=== PATIENT | female | born 1995 | race African-American/Black ===

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

== ENCOUNTER 2017-02-05 20:49 | Emergency (ER) | payer SELFPAY ==
[~2017-02-05] VITALS: Ht 154.9 cm; Wt 52.2 kg
[2017-02-05 21:26] LABS: BILIRUBIN,URINE SMALL (NEG); GLUCOSE,URINE NEGATIVE (NEG); NITRITE,URINE POSITIVE (NEG); PH,URINE 5.5; PROTEIN,URINE 100 mg/dL (NEG-TRACE); UROBILINOGEN,URINE 0.2 mg/dL (0.2 mg/dL)
[2017-02-05 21:44] LABS: BASO # 0.1 x10^3/uL (0.0-0.2); BASO % 1 % (0-3); EOS % 1 % (0-3); HEMATOCRIT 35.8 % (36.0-47.0); HEMOGLOBIN 11.6 g/dL (12.0-15.5); LYMPH # 1.1 x10^3/uL (1.0-4.8); LYMPH % 15 % (24-48); MEAN CORPUSCULAR HEMOGLOBIN 26 pg (25-35); MEAN CORPUSCULAR HGB CONC 33 g/dL (31-37); MEAN CORPUSCULAR VOLUME 81 fL (79-100); MONO % 7 % (0-9); NEUT % 77 % (31-73); PLATELET COUNT 255 x10^3/uL (140-400); RED BLOOD COUNT 4.44 x10^6/uL (3.50-5.40); RED CELL DISTRIBUTION WIDTH 17.5 % (11.5-14.5); WHITE BLOOD COUNT 7.2 x10^3/uL (4.0-11.0)
[2017-02-05 21:47] LABS: BACTERIA,URINE MANY /HPF (0-FEW); SQUAMOUS EPITHELIAL CELL,UR MANY /LPF; WBC,URINE 20-40 /HPF (0-4)
[2017-02-05 21:55] LABS: CALCIUM 8.6 mg/dL (8.5-10.1); CREATININE 0.7 mg/dL (0.6-1.0); GFR 130.4; POTASSIUM 3.6 mmol/L (3.5-5.1)
[2017-02-05 21:58] LABS: NEG OBC SER NEG; POS OBC SER POS
[2017-02-05 22:01] LABS: ALBUMIN 3.9 g/dL (3.4-5.0); ALBUMIN/GLOBULIN RATIO 1.3 (1.0-1.7); TOTAL BILIRUBIN 0.2 mg/dL (0.2-1.0)
--- NOTE | 2017-02-05 22:16 | EKG ---
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
[2017-02-05 23:00] VITALS: BP 105/74
[2017-02-05] MEDS ORDERED: IV NORMAL SALINE 1000ML BAG 1,000 ML IV ONE (23:30)
--- NOTE | 2017-02-06 03:12 | PHYS DOC ---
Past Medical History Past Medical History: No Pertinent History Past Surgical History: No Surgical History Alcohol Use: Occasionally Drug Use: Marijuana Adult General Chief Complaint Chief Complaint: HEADACHE HPI HPI Patient is a 21 year old -[place] female who presents with near syncopal episode with collapse follow-up work. Patient reports feeling dizzy lightheaded and feeling generally weak. The patient collapsed to the floor in a controlled manner. Denies losing consciousness, hitting her head or headache. Patient states she is said prior dizzy episodes although less severe. Denies chest pain palpitations, shortness breath, abdominal pain. No nausea vomiting or diarrhea. No bloody stools dark tarry stools. Last menstrual period was 2 weeks ago. Patient saw currently on control. Patient smokes cigarettes and drinks occasional alcohol. Denies drug use. Review of Systems Review of Systems Review symptoms as per history of present illness. All other review symptoms are negative. Current Medications Current Medications Current Medications Medications (Trade) Dose Ordered Sig/Latricia Start Time Stop Time Status Last Admin Dose Admin Ceftriaxone Sodium 50 ml @ 100 mls/hr 1X ONCE 02/05/17 23:30 02/05/17 23:52 DC 02/05/17 23:25 100 MLS/HR Sodium Chloride 1,000 ml @ 1,000 mls/hr 1X ONCE 02/05/17 23:30 02/05/17 23:52 DC 02/05/17 23:25 1,000 MLS/HR Allergies Allergies Allergies Coded Allergies Type Severity Reaction Last Updated Verified No Known Drug Allergies 10/15/14 No Physical Exam Physical Exam Constitutional: Well developed, well nourished, no acute distress, non-toxic appearance. [] HENT: Normocephalic, atraumatic, bilateral external ears normal, oropharynx moist, no oral exudates, nose normal. [] Eyes: PERRLA, EOMI, conjunctiva normal, no discharge. [] Neck: Normal range of motion, no tenderness, supple, no stridor. [] Cardiovascular:Heart rate regular rhythm, no murmur [] Lungs & Thorax: Bilateral breath sounds clear to auscultation [] Abdomen: Bowel sounds normal, soft, no tenderness, no masses, no pulsatile masses. [] Skin: Warm, dry, no erythema, no rash. [] Back: No tenderness. [] Extremities: No tenderness, no cyanosis, no clubbing, ROM intact, no edema. [] Neurologic: Alert and oriented X 3, normal motor function, normal sensory function, no focal deficits noted. [] Psychologic: Affect normal, judgement normal, mood normal. [] Current Patient Data Vital Signs Vital Signs Date Time Temp Pulse Resp B/P (MAP) Pulse Ox O2 Delivery O2 Flow Rate FiO2 02/05/17 23:00 58 16 105/74 (84) 100 Room Air 02/05/17 21:17 98.1 98.1 Lab Values Laboratory Tests Test 02/05/17 20:26 02/05/17 21:10 02/05/17 21:31 POC Urine HCG, Qualitative Hcg negative (Negative) Urine Collection Type Unknown Urine Color Yellow Urine Clarity Cloudy Urine pH 5.5 Urine Specific [place] >=1.030 Urine Protein 100 mg/dL (NEG-TRACE) Urine Glucose (UA) Negative mg/dL (NEG) Urine Ketones (Stick) Trace mg/dL (NEG) Urine Blood Moderate (NEG) Urine Nitrite Positive (NEG) Urine Bilirubin Small (NEG) Urine Urobilinogen Dipstick 0.2 mg/dL (0.2 mg/dL) Urine Leukocyte Esterase Moderate (NEG) Urine RBC 11-20 /HPF (0-2) Urine WBC 20-40 /HPF (0-4) Urine Squamous Epithelial Cells Many /LPF Urine Bacteria Many /HPF (0-FEW) Urine Mucus Mod /LPF White Blood Count 7.2 x10^3/uL (4.0-11.0) Red Blood Count 4.44 x10^6/uL (3.50-5.40) Hemoglobin 11.6 g/dL (12.0-15.5) L Hematocrit 35.8 % (36.0-47.0) L Mean Corpuscular Volume 81 fL (79-100) Mean Corpuscular Hemoglobin 26 pg (25-35) Mean Corpuscular Hemoglobin Concent 33 g/dL (31-37) Red Cell Distribution Width 17.5 % (11.5-14.5) H Platelet Count 255 x10^3/uL (140-400) Neutrophils (%) (Auto) 77 % (31-73) H Lymphocytes (%) (Auto) 15 % (24-48) L Monocytes (%) (Auto) 7 % (0-9) Eosinophils (%) (Auto) 1 % (0-3) Basophils (%) (Auto) 1 % (0-3) Neutrophils # (Auto) 5.5 x10^3uL (1.8-7.7) Lymphocytes # (Auto) 1.1 x10^3/uL (1.0-4.8) Monocytes # (Auto) 0.5 x10^3/uL (0.0-1.1) Eosinophils # (Auto) 0.1 x10^3/uL (0.0-0.7) Basophils # (Auto) 0.1 x10^3/uL (0.0-0.2) Sodium Level 143 mmol/L (136-145) Potassium Level 3.6 mmol/L (3.5-5.1) Chloride Level 106 mmol/L (98-107) Carbon Dioxide Level 27 mmol/L (21-32) Anion Gap 10 (6-14) Blood Urea Nitrogen 7 mg/dL (7-20) Creatinine 0.7 mg/dL (0.6-1.0) Estimated GFR (Cockcroft-Gault) 130.4 BUN/Creatinine Ratio 10 (6-20) Glucose Level 95 mg/dL (70-99) Calcium Level 8.6 mg/dL (8.5-10.1) Total Bilirubin 0.2 mg/dL (0.2-1.0) Aspartate Amino Transferase (AST) 12 U/L (15-37) L Alanine Aminotransferase (ALT) 12 U/L (14-59) L Alkaline Phosphatase 45 U/L (46-116) L Total Protein 7.0 g/dL (6.4-8.2) Albumin 3.9 g/dL (3.4-5.0) Albumin/Globulin Ratio 1.3 (1.0-1.7) Serum Test, Qualitative Negative (NEG) Laboratory Tests 02/05/17 21:31 Laboratory Tests 02/05/17 21:31 EKG EKG [EKG: Normal sinus rhythm, normal axis, no acute ST-T wave changes. EKG interpreted by me.] Radiology/Procedures Radiology/Procedures [Chest x-ray: No acute cardiopulmonary disease per preliminary ED review.] Course & Med Decision Making Course & Med Decision Making Pertinent Labs and Imaging studies reviewed. (See chart for details) [Patient with dizziness lightheadedness with urinary tract infection possibly contributing to symptoms. Patiently orthostatic vital signs negative but does report feeling dizzy upon standing. IV fluids and antibiotics given. Will treat. Cleaned with PCP follow-up. Return precautions reviewed. Courtesy 2 day work note provided.] Malinda Disclaimer Malinda Disclaimer This electronic medical record was generated, in whole or in part, using a voice recognition dictation system. Departure Departure Impression: Primary Impression: Dizziness Additional Impression: Urinary tract infection Disposition: HOME, SELF-CARE Condition: GOOD Patient Instructions: Urinary Tract Infection, [id number], Dizziness, Easy-to -Read Additional Instructions: Your were evaluated in the emergency department for dizziness. Lab work EKG were performed and is diagnostic of a urinary tract infection which is likely contributing to your symptoms. Please increase fluids, take antibiotics as directed and follow-up with local PCP in 2-3 days for reevaluation. In the meantime, if you develop new or worse, please return to the ER. A courtesy work note has been provided. Problem Qualifiers ADRIENNE CLINE DO Feb 06, 2017 03:12
== END 2017-02-05 23:52 | disposition home or self-care (01) ==
LOC: ER 20:49
DX: R42 Dizziness and giddiness (principal); N39.0 Urinary tract infection, site not specified; R55 Syncope and collapse; F12.10 Cannabis abuse, uncomplicated
CPT/HCPCS: 36415; 80053; 81001; 81025; 84703; 85025; 87086; 87186; 93005; 96365; 99285; J0690; J7030

== ENCOUNTER 2018-03-03 09:39 | Emergency (ER) | payer SELFPAY ==
[~2018-03-03] VITALS: Ht 154.9 cm; Wt 57.2 kg
[2018-03-03 10:41] VITALS: BP 130/81
[2018-03-03] MEDS ORDERED: LIDOCAINE 1% PF 30 ML VIAL. INJ ONE (11:00)
[2018-03-03] MEDS ORDERED: IBUPROFEN 600 MG TABLET. PO ONE (11:00)
--- NOTE | 2018-03-03 11:00 | PHYS DOC ---
Past Medical History Past Medical History: No Pertinent History Past Surgical History: No Surgical History Alcohol Use: Occasionally Drug Use: Marijuana Adult General Chief Complaint Chief Complaint: INSECT BITE HPI HPI Patient is a 22 year old [f__sex] who presents with [] Review of Systems Review of Systems Constitutional: Denies fever or chills [] Eyes: Denies change in visual acuity, redness, or eye pain [] HENT: Denies nasal congestion or sore throat [] Respiratory: Denies cough or shortness of breath [] Cardiovascular: No additional information not addressed in HPI [] GI: Denies abdominal pain, nausea, vomiting, bloody stools or diarrhea [] : Denies dysuria or hematuria [] Musculoskeletal: Denies back pain or joint pain [] Integument: Denies rash or skin lesions [] Neurologic: Denies headache, focal weakness or sensory changes [] Endocrine: Denies polyuria or polydipsia [] All other systems were reviewed and found to be within normal limits, except as documented in this note. Current Medications Current Medications Current Medications Medications (Trade) Dose Ordered Sig/Latricia Start Time Stop Time Status Last Admin Dose Admin Ibuprofen (Motrin) 600 mg 1X ONCE 03/03/18 11:00 03/03/18 11:02 DC 03/03/18 11:12 600 MG Lidocaine HCl (Xylocaine 1% Pf 30ml Vial) 30 ml 1X ONCE 03/03/18 11:00 03/03/18 11:02 DC 03/03/18 11:12 30 ML Allergies Allergies Allergies Coded Allergies Type Severity Reaction Last Updated Verified No Known Drug Allergies 10/15/14 No Physical Exam Physical Exam Constitutional: Well developed, well nourished, no acute distress, non-toxic appearance. [] HENT: Normocephalic, atraumatic, bilateral external ears normal, oropharynx moist, no oral exudates, nose normal. [] Eyes: PERRLA, EOMI, conjunctiva normal, no discharge. [] Neck: Normal range of motion, no tenderness, supple, no stridor. [] Cardiovascular:Heart rate regular rhythm, no murmur [] Lungs & Thorax: Bilateral breath sounds clear to auscultation [] Abdomen: Bowel sounds normal, soft, no tenderness, no masses, no pulsatile masses. [] Skin: Warm, dry, no erythema, no rash. [] Back: No tenderness, no CVA tenderness. [] Extremities: No tenderness, no cyanosis, no clubbing, ROM intact, no edema. [] Neurologic: Alert and oriented X 3, normal motor function, normal sensory function, no focal deficits noted. [] Psychologic: Affect normal, judgement normal, mood normal. [] Current Patient Data Vital Signs Vital Signs Date Time Temp Pulse Resp B/P (MAP) Pulse Ox O2 Delivery O2 Flow Rate FiO2 03/03/18 10:41 98.2 79 18 130/81 (97) 99 Room Air 98.2 EKG EKG [] Radiology/Procedures Radiology/Procedures [] Course & Med Decision Making Course & Med Decision Making Pertinent Labs and Imaging studies reviewed. (See chart for details) [] Dragon Disclaimer Dragon Disclaimer This electronic medical record was generated, in whole or in part, using a voice recognition dictation system. Departure Departure Impression: Primary Impression: Abscess Disposition: 01 HOME, SELF-CARE Condition: STABLE Referrals: NO PCP (PCP) Patient Instructions: Abscess Additional Instructions: Tylenol and/or ibuprofen for pain/fever control as directed on container. Warm compresses every 3-4 hours to affected area for 20-30 minutes at a time. Packing should be removed in 24 hours- follow-up at clinic or with concerns return to Emergency Department for wound re-evaluation. Scripts Sulfamethoxazole/Trimethoprim (BACTRIM DS TABLET) 1 Each Tablet 1 TAB PO BID, #14 TAB 0 Refills Prov: IVY ARORA APRN 03/03/18 IVY ARORA APRN Mar 03, 2018 11:00
[2018-03-03] MEDS ORDERED: SULF1TAB24 PO (11:57)
== END 2018-03-03 12:31 | disposition home or self-care (01) ==
LOC: ER 09:39
DX: L02.31 Cutaneous abscess of buttock (principal)
CPT/HCPCS: 87070; 87186; 96372; 99283; 99284

== ENCOUNTER 2018-10-09 15:39 | Emergency (ER) | payer SELFPAY ==
[~2018-10-09] VITALS: Ht 154.9 cm; Wt 57.6 kg
[~2018-10-09 15:39] MED LIST changes: +SULF1TAB24 PO
[2018-10-09 16:35] VITALS: BP 121/76
[2018-10-09 17:07] LABS: BILIRUBIN,URINE NEGATIVE (NEG); CLARITY,URINE CLEAR; COLOR,URINE YELLOW; NITRITE,URINE NEGATIVE (NEG); PH,URINE 5.5; PROTEIN,URINE NEGATIVE (NEG-TRACE)
[2018-10-09 17:16] LABS: BACTERIA,URINE MODERATE /HPF (0-FEW); RBC,URINE 0 /HPF (0-2); SQUAMOUS EPITHELIAL CELL,UR MANY /LPF; WBC,URINE RARE /HPF (0-4)
--- NOTE | 2018-10-09 17:37 | PHYS DOC ---
Past Medical History Past Medical History: No Pertinent History Past Surgical History: No Surgical History Alcohol Use: Occasionally Drug Use: Marijuana Adult General Chief Complaint Chief Complaint: VAGINAL PROBLEM HPI HPI Patient is a 23 year old F who comes in today for concern for STD and a lump that has been in her vaginal area for almost a month and is tender. Review of Systems Review of Systems Constitutional: Denies fever or chills Respiratory: Denies cough or shortness of breath Cardiovascular: Denies chest pain GI: Denies abdominal pain, nausea, vomiting, bloody stools or diarrhea : Denies dysuria or hematuria. Reports vaginal sore. Musculoskeletal: Denies back pain or joint pain Integument: Denies rash or skin lesions. Reports lump in vagina Neurologic: Denies headache, focal weakness or sensory changes All other systems were reviewed and found to be within normal limits, except as documented in this note. Current Medications Current Medications Current Medications Medications (Trade) Dose Ordered Sig/Latricia Start Time Stop Time Status Last Admin Dose Admin Azithromycin (Zithromax) 1,000 mg 1X ONCE 10/09/18 17:45 10/09/18 17:46 DC 10/09/18 17:45 1,000 MG Ceftriaxone Sodium (Rocephin Im) 1 gm 1X ONCE 10/09/18 17:45 10/09/18 17:46 DC 10/09/18 17:45 1 GM Allergies Allergies Allergies Coded Allergies Type Severity Reaction Last Updated Verified I S O L A T I O N *CONTACT* Allergy Unknown 03/07/18 Yes No Known Medication Allergies Allergy Unknown 03/07/18 Yes Physical Exam Physical Exam Constitutional: Well developed, well nourished, no acute distress, non-toxic appearance. Neck: Normal range of motion, no tenderness, supple, no stridor. Cardiovascular:Heart rate regular rhythm, no murmur Lungs & Thorax: Bilateral breath sounds clear to auscultation Abdomen: Bowel sounds normal, soft, no tenderness, no masses, no pulsatile masses. Skin: Warm, dry, no erythema, no rash. See vaginal exam. Back: No tenderness, no CVA tenderness. Extremities: No tenderness, no cyanosis, no clubbing, ROM intact, no edema. Neurologic: Alert and oriented X 3, normal motor function, normal sensory function, no focal deficits noted. Psychologic: Affect normal, judgement normal, mood normal. Vaginal Exam: Pt has lower left bartholin gland cyst that is mildly tender to touch. No other external lesions noted. Speculum exam is normal, with white vaginal di scharge noted. Cervix and adnexa are nontender. Current Patient Data Vital Signs Vital Signs Date Time Temp Pulse Resp B/P (MAP) Pulse Ox O2 Delivery O2 Flow Rate FiO2 10/09/18 16:35 98.3 62 14 121/76 (91) 100 Room Air 98.3 Lab Values Laboratory Tests Test 10/09/18 16:34 10/09/18 17:00 10/09/18 17:30 Urine Collection Type Unknown Urine Color Yellow Urine Clarity Clear Urine pH 5.5 Urine Specific [place] >=1.030 Urine Protein Negative mg/dL (NEG-TRACE) Urine Glucose (UA) Negative mg/dL (NEG) Urine Ketones (Stick) Negative mg/dL (NEG) Urine Blood Negative (NEG) Urine Nitrite Negative (NEG) Urine Bilirubin Negative (NEG) Urine Urobilinogen Dipstick 1.0 mg/dL (0.2 mg/dL) Urine Leukocyte Esterase Negative (NEG) Urine RBC 0 /HPF (0-2) Urine WBC Rare /HPF (0-4) Urine Squamous Epithelial Cells Many /LPF Urine Bacteria Moderate /HPF (0-FEW) Urine Mucus Marked /LPF POC Urine HCG, Qualitative Hcg negative (Negative) Chlamydia DNA Probe Negative (Negative) Neisseria gonorrhoeae DNA Probe Negative (Negative) Microbiology 10/09/18 Wet Prep - Final, Complete EKG EKG [] Radiology/Procedures Radiology/Procedures [] Course & Med Decision Making Course & Med Decision Making Pertinent Labs and Imaging studies reviewed. (See chart for details) Discussed option for STD treatment today or if swabs come back positive and she would like to be treated today. Rocephin and Azithromycin given in ER and will prescribe Keflex for outpt. Pt's Bartholin gland cyst has been present for a month and is soft with mild tenderness. It does not appear to be abscessed at this time. 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 No need for I&D currently. Dragon Disclaimer Dragon Disclaimer This electronic medical record was generated, in whole or in part, using a voice recognition dictation system. Departure Departure Impression: Primary Impression: Bartholin's gland infection Additional Impression: Concern about STD in female without diagnosis Disposition: HOME, SELF-CARE Condition: STABLE Referrals: NO PCP (PCP) ANIKA GEORGE MD Patient Instructions: Bartholin's Cyst or Abscess, Sexually Transmitted Disease Additional Instructions: Warm water soaks, antibacterial soap, antibiotics. If it is not improving, you will need to see GLOVE BRUSHER. Scripts Cephalexin (KEFLEX) 500 Mg Capsule 1 CAP PO TID, #30 CAP Prov: JENNY MENDEZ 10/09/18 Problem Qualifiers JENNY MENDEZ Oct 09, 2018 17:37
[2018-10-09] MEDS ORDERED: AZITHROMYCIN 250 MG TABLET. PO ONE (17:45)
[2018-10-09] MEDS ORDERED: cefTRIAXone IM 1 GM VIAL IM ONE (17:45)
[2018-10-09] MEDS ORDERED: CEPH-264 PO (17:50)
[2018-10-10 13:17] LABS: GC PROBE Negative (Negative)
== END 2018-10-09 17:55 | disposition home or self-care (01) ==
LOC: ER 15:39
DX: N75.0 Cyst of Bartholin's gland (principal); Z20.2 Contact with and (suspected) exposure to infections with a predominantly sexual mode of transmission; Z91.041 Radiographic dye allergy status
CPT/HCPCS: 81001; 81025; 87086; 87491; 87591; 96372; 99284; J0696; Q0111; Q0144

== ENCOUNTER 2020-10-11 09:36 | Emergency (ER) | payer SELFPAY ==
[~2020-10-11] VITALS: Ht 154.9 cm; Wt 66.6 kg
[~2020-10-11 09:36] MED LIST changes: +CEPH-264 PO
[2020-10-11 10:07] LABS: BILIRUBIN,URINE NEGATIVE (NEG); CLARITY,URINE CLEAR; COLOR,URINE YELLOW; NITRITE,URINE NEGATIVE (NEG); PH,URINE 5.5 (<5.0-8.0); PROTEIN,URINE NEGATIVE (NEG-TRACE); UROBILINOGEN,URINE 0.2 mg/dL (0.2 mg/dL)
[2020-10-11 10:16] VITALS: BP 125/67
[2020-10-11 10:28] LABS: BACTERIA,URINE FEW /HPF (0-FEW); RBC,URINE 0 /HPF (0-2)
[2020-10-11 11:08] LABS: BASO # 0.1 x10^3/uL (0.0-0.2); BASO % 1 % (0-3); EOS # 0.1 x10^3/uL (0.0-0.7); EOS % 1 % (0-3); HEMATOCRIT 24.8 % (36.0-47.0); LYMPH # 1.4 x10^3/uL (1.0-4.8); LYMPH % 17 % (24-48); MEAN CORPUSCULAR HEMOGLOBIN 25 pg (25-35); MEAN CORPUSCULAR HGB CONC 32 g/dL (31-37); MEAN CORPUSCULAR VOLUME 77 fL (79-100); MONO # 0.8 x10^3/uL (0.0-1.1); MONO % 9 % (0-9); NEUT % 72 % (31-73); PLATELET COUNT 415 x10^3/uL (140-400); RED BLOOD COUNT 3.24 x10^6/uL (3.50-5.40); RED CELL DISTRIBUTION WIDTH 18.2 % (11.5-14.5); WHITE BLOOD COUNT 8.3 x10^3/uL (4.0-11.0)
[2020-10-11] MEDS ORDERED: METR-34 PO (11:46)
--- NOTE | 2020-10-11 11:50 | ED.ADGEN ---
Past Medical History Past Medical History: MRSA Past Surgical History: No Surgical History Smoking Status: Current Every Day Smoker Additional Information: SMOKES BLACK & MILDS EVERYDAY Alcohol Use: Occasionally Drug Use: Marijuana General Adult EDM: Chief Complaint: VAGINAL PROBLEM HPI: HPI: Patient is a 25 year old AA female who presents emergency department complaints of irregular vaginal discharge for the last 2 days. She states that her vaginal area parra. She denies any irregular vaginal odor. Patient reports that she thinks she had a miscarriage at the beginning of the month, she was seen at for those symptoms. Patient denies any current vaginal bleeding, dysuria, hematuria, increased urinary frequency, pelvic pain, abdominal pain, vomiting, diarrhea, fever, or back pain. Patient states she has been nauseated in the mornings recently she has also had a intermittent dry cough for a while now. The patient currently denies any pain. Review of Systems: Review of Systems: Complete ROS is negative unless otherwise noted in HPI. Allergies: Allergies: Allergies Coded Allergies Type Severity Reaction Last Updated Verified I S O L A T I O N *CONTACT* Allergy Unknown 03/07/18 Yes No Known Medication Allergies Allergy Unknown 03/07/18 Yes Physical Exam: PE: See Above Constitutional: Well developed, well nourished, no acute distress, non-toxic appearance. HENT: Normocephalic, atraumatic, bilateral external ears normal, nose normal. Eyes: PERRLA, EOMI, conjunctiva normal, no discharge. Neck: Normal range of motion, no stridor. Cardiovascular: Heart rate regular rhythm Lungs & Thorax: Respirations even and unlabored, no retractions, no respiratory distress Pelvic Exam: [employer] present Rachel FRIED Abdomen: Nontender, soft External Genitalia: Normal Skin Speculum: Normal vaginal mucosa, large amount of white to yellow cervical discharge, cervix is friable Bimanual: No adnexal masses or tenderness, No CMT Skin: Warm, dry, no erythema, no rash. Extremities: No cyanosis, ROM intact, no edema. Neurologic: Alert and oriented X 3, no focal deficits noted. Psychologic: Affect normal, judgement normal, mood normal. Current Patient Data: Labs: Laboratory Tests Test 10/11/20 09:50 10/11/20 09:53 10/11/20 10:57 Urine Collection Type Unknown Urine Color Yellow Urine Clarity Clear Urine pH 5.5 (<5.0-8.0) Urine Specific [place] >=1.030 (1.000-1.030) Urine Protein Negative mg/dL (NEG-TRACE) Urine Glucose (UA) Negative mg/dL (NEG) Urine Ketones (Stick) Negative mg/dL (NEG) Urine Blood Negative (NEG) Urine Nitrite Negative (NEG) Urine Bilirubin Negative (NEG) Urine Urobilinogen Dipstick 0.2 mg/dL (0.2 mg/dL) Urine Leukocyte Esterase Moderate (NEG) Urine RBC 0 /HPF (0-2) Urine WBC 11-20 /HPF (0-4) Urine Squamous Epithelial Cells Many /LPF Urine Bacteria Few /HPF (0-FEW) Urine Mucus Slight /LPF POC Urine HCG, Qualitative Hcg negative (Negative) White Blood Count 8.3 x10^3/uL (4.0-11.0) Red Blood Count 3.24 x10^6/uL (3.50-5.40) L Hemoglobin 8.0 g/dL (12.0-15.5) L Hematocrit 24.8 % (36.0-47.0) L Mean Corpuscular Volume 77 fL (79-100) L Mean Corpuscular Hemoglobin 25 pg (25-35) Mean Corpuscular Hemoglobin Concent 32 g/dL (31-37) Red Cell Distribution Width 18.2 % (11.5-14.5) H Platelet Count 415 x10^3/uL (140-400) H Neutrophils (%) (Auto) 72 % (31-73) Lymphocytes (%) (Auto) 17 % (24-48) L Monocytes (%) (Auto) 9 % (0-9) Eosinophils (%) (Auto) 1 % (0-3) Basophils (%) (Auto) 1 % (0-3) Neutrophils # (Auto) 6.0 x10^3/uL (1.8-7.7) Lymphocytes # (Auto) 1.4 x10^3/uL (1.0-4.8) Monocytes # (Auto) 0.8 x10^3/uL (0.0-1.1) Eosinophils # (Auto) 0.1 x10^3/uL (0.0-0.7) Basophils # (Auto) 0.1 x10^3/uL (0.0-0.2) Laboratory Tests 4/26/21 10:57 Microbiology 10/11/20 Wet Prep - Final, Complete Vital Signs: Vital Signs Date Time Temp Pulse Resp B/P (MAP) Pulse Ox O2 Delivery O2 Flow Rate FiO2 10/11/20 10:16 98.3 78 19 125/67 (86) 100 Room Air 98.3 EKG: EKG: [] Heart Score: C/O Chest Pain: No Risk Scores: Score 0 - 3: 2.5% MACE over next 6 weeks - Discharge Home Score 4 - 6: 20.3% MACE over next 6 weeks - Admit for Clinical Observation Score 7 - 10: 72.7% MACE over next 6 weeks - Early Invasive Strategies Radiology/Procedures: Radiology/Procedures: [] Course & Med Decision Making: Course & Med Decision Making Pertinent Labs and Imaging studies reviewed. (See chart for details) 25-year-old female presents emergency department with concerns of irregular vaginal discharge for the last 2 days. Wet mount revealed trichomonas infection. Patient reports that she was just tested for gonorrhea and chlamydia at and it was negative, she declines treatment for gonorrhea and chlamydia. Patient reported a history of anemia stated that she was told that her blood counts were low at and requested that they be rechecked. Patient's hemoglobin is 8, her MCV is low, likely due to iron deficiency anemia. Patient was encouraged to follow-up with her primary care doctor, increase her daily iron intake. Return to the ER if symptoms worsen. Patient verbalized an understanding of home care, medications, follow-up, and return to ED instructions and was in agreement with the plan of care. [] Malinda Disclaimer: Malinda Disclaimer: This electronic medical record was generated, in whole or in part, using a voice recognition dictation system. Departure Departure Impression: Primary Impression: Infection due to trichomonas (vaginalis) Additional Impression: Iron deficiency anemia Disposition: HOME / SELF CARE / HOMELESS Condition: STABLE Referrals: NO PCP (PCP) Patient Instructions: Iron Deficiency Anemia, [id number], Trichomoniasis- Brief Additional Instructions: Fill the prescription and take as directed. Avoid having intercourse until a week has passed since you complete the antibiotics prescribed. You have also been tested for gonorrhea and chlamydia these results will not be available for 48 hours. If one or both of these tests is positive you will need further treatment. Follow-up with your primary care doctor if symptoms persist, return to ER symptoms worsen. [facility] [address] [address] [facility] [address] [address] [facility] C[facility] [address] [facility]. [address] [facility] [address] [address] [facility] [address] [place] [address] [address] [place] [address] [facility] [address] [address] [facility] [address] [address] [facility] [address] [id number] [facility] [address] [address] Scripts Metronidazole (METRONIDAZOLE) 500 Mg Tablet 1 TAB PO BID for 7 Days, #14 TAB 0 Refills Prov: TAM CAIN APRN 10/11/20 Attending Signature Attending Signature I have participated in the care of this patient and I have reviewed and agree with all pertinent clinical information above including history, exam, and recommendations. Problem Qualifiers Additional Impression: Iron deficiency anemia Iron deficiency anemia type: unspecified iron deficiency Qualified Codes: D50.9 - Iron deficiency anemia, unspecified TAM CAIN APRN Oct 11, 2020 11:50 KRISTAL WHEATLEY MD Oct 12, 2020 06:05
[2020-10-12 12:16] LABS: GC PROBE Negative (Negative)
== END 2020-10-11 11:55 | disposition home or self-care (01) ==
LOC: ER 09:36
DX: A59.01 Trichomonal vulvovaginitis (principal); D50.9 Iron deficiency anemia, unspecified; F17.200 Nicotine dependence, unspecified, uncomplicated; Z86.14 Personal history of Methicillin resistant Staphylococcus aureus infection; Z88.8 Allergy status to other drugs, medicaments and biological substances
CPT/HCPCS: 36415; 81001; 81025; 85025; 87086; 87491; 87591; 99284; Q0111